=== PATIENT | female | born 1960 | race Caucasian/White ===

== ENCOUNTER 2018-03-15 20:54 | Emergency (ER) | payer OTHER ==
[2018-03-15 21:06] LABS: PH,URINE 6.5 (4.5-8); URINE APPEARANCE Clear; URINE BILIRUBIN Negative (NEGATIVE); URINE COLOR Yellow; URINE GLUCOSE (UA) Negative (NEGATIVE); URINE KETONE Negative (NEGATIVE); URINE LEUK ESTERASE Negative (NEGATIVE); URINE NITRITE Negative (NEGATIVE); URINE PROTEIN Negative (NEGATIVE); URINE UROBILINOGEN 0.2 (0.2-1.0)
[2018-03-15 22:08] VITALS: BP 135/95; PULSE 96; TEMP 98.6; BMI 29.1
[2018-03-15] MEDS ORDERED: SODIUM CHLORIDE 0.9% 1000 ML INFUS.BAG IV ONE (22:17)
--- NOTE | 2018-03-15 22:35 | PDOC ---
History of Present Illness - General Chief Complaint: Urinary Problem Stated Complaint: UTI Time Seen by Provider: 03/15/18 21:51 History Source: Patient Exam Limitations: No Limitations - History of Present Illness Initial Comments: 03/15/18 22:34 57 yo f with no pmhx here with c/o 5 days of lower abd pain. denies vomiting, but has had mild nausea, took home urine test said mild positive for nitrites. pt describes a sharp pain pulling sensation in pelvis. worse with walking and movement around. no f mild chills. no change to stool. take stool softners regularily bc h/o diverticulosis. also had had recent back pain. 03/16/18 00:48 Past History - Past Medical History Allergies/Adverse Reactions: Allergies Allergy/AdvReac Type Severity Reaction Status Date / Time latex Allergy Unknown Verified 03/15/18 20:57 Home Medications: Ambulatory Orders Levothyroxine [Synthroid -] 100 mcg PO DAILY 03/15/18 Raloxifene HCl [Evista] 60 mg PO DAILY 03/15/18 Ciprofloxacin HCl [Cipro] 500 mg PO BID #20 tablet 03/16/18 metroNIDAZOLE [Flagyl -] 500 mg PO TID #30 tablet 03/16/18 Cancer: Yes (BREAST) COPD: No Kidney Stones: Yes Thyroid Disease: Yes - Suicide/Smoking/Psychosocial Hx Smoking History: Never smoked Hx Alcohol Use: Yes (WINE 1-2 DAYS A WEEK) Drug/Substance Use Hx: No Substance Use Type: None Review of Systems - Review of Systems Constitutional: No: Chills, Diaphoresis Cardiac (ROS): No: Chest Pain ABD/GI: Yes: Other (abd pain). No: Abdominal Distended : No: Burning, Dysuria, Discharge All Other Systems: Reviewed and Negative *Physical Exam - Vital Signs Last Vital Signs Temp Pulse Resp BP Pulse Ox 98.6 F 96 H 16 135/95 98 03/15/18 20:55 03/15/18 20:55 03/15/18 20:55 03/15/18 20:55 03/15/18 20:55 - Physical Exam Comments: 03/16/18 00:50 awake alert lungs clear bilaterally heart rrr no mrg abd soft mild llq ttp, suprapubic ttp. no cva tenderness. ext wwp. no edema. skin warm and dry. General Appearance: No: Appropriately Dressed ED Treatment Course - LABORATORY CBC & Chemistry Diagram: 03/15/18 22:39 03/15/18 22:40 - ADDITIONAL ORDERS Additional order review: Laboratory Results 03/15/18 21:00 Urine Color Yellow Urine Appearance Clear Urine pH 6.5 Ur Specific [place] 1.020 Urine Protein Negative Urine Glucose (UA) Negative Urine Ketones Negative Urine Blood Negative Urine Nitrite Negative Urine Bilirubin Negative Urine Urobilinogen 0.2 Ur Leukocyte Esterase Negative - RADIOLOGY Radiology Studies Ordered: Category Date Time Status ABDOMEN & PELVIS CT WITH CONTR [CT] Stat CT Scan 03/15/18 22:15 Ordered Medical Decision Making - Medical Decision Making 03/16/18 00:50 differential diagnosis diverticulitis, pyelo uti, ovarian path. plan ct a/p ua labs. ct with diverticulitis, pt mild sxs, afebrile, tolerating po. will dc with cipro and flagyl, fu gi and pcp. *DC/Admit/Observation/Transfer Diagnosis at time of Disposition: Diverticulitis - Discharge Dispostion Disposition: HOME Condition at time of disposition: Improved Decision to Admit order: No - Prescriptions Prescriptions: Ciprofloxacin HCl [Cipro] 500 mg PO BID #20 tablet metroNIDAZOLE [Flagyl -] 500 mg PO TID #30 tablet - Referrals Referrals: Geetha Us MD [Primary Care Provider] - - Patient Instructions Printed Discharge Instructions: Diverticulitis Additional Instructions: take ciprofloxacin 500 mg twice daily x 10 days , take flagyl 500 mg three times daily x 10 days. do not take any alcohol while taking flagyl and it can cause severe nausea and vomiting. return for worsening pain, high fevers, vomiting or any concerns. you should take liquid diet for 2 - 3 days until pain improves, then advance to solids as tolerated. you should follow up with your primary doctor and a caption writer call to schedule. - Post Discharge Activity
[2018-03-15 23:01] LABS: EOS % 2.2 % (0-4.5); HEMATOCRIT 42.3 % (32.4-45.2); HEMOGLOBIN 14.2 GM/dl (10.7-15.3); LYMPH % 36.4 % (8-40); MCH 30.3 pg (25.7-33.7); MCHC 33.6 g/dl (32.0-36.0); MEAN CELL VOLUME 90.1 fl (80-96); MEAN PLT VOLUME 10.1 fl (7.5-11.1); MONO % 7.1 % (3.8-10.2); NEUT % 52.3 % (42.8-82.8); PLATELET COUNT 227 K/MM3 (134-434); RDW 11.6 % (11.6-15.6); WHITE BLOOD COUNT 7.1 K/mm3 (4.0-10.8)
[2018-03-15 23:10] LABS: ALBUMIN 4.1 g/dl (3.5-5.0); ALK PHOS 81 U/L (32-92); ANION GAP 8 MMOL/L (8-16); BILIRUBIN,TOTAL 0.2 mg/dl (0.2-1.0); BLOOD UREA NITROGEN 19 mg/dl (7-18); CALCIUM 9.3 mg/dl (8.4-10.2); CHLORIDE 105 mmol/L (98-107); CO2 24 mmol/L (22-28); CREATININE 0.8 mg/dl (0.6-1.3); GLUCOSE,RANDOM 118 mg/dl (74-106); POTASSIUM 4.5 mmol/L (3.5-5.1); SGOT/AST 34 U/L (10-42); SGPT/ALT 46 U/L (10-40); SODIUM 137 mmol/L (136-145); TOT PROT 7.3 g/dl (6.4-8.3)
[2018-03-16] MEDS ORDERED: CIPROFLOXACIN 500 MG TABLET (RESTRICTED TO ID) PO ONE (00:37)
[2018-03-16] MEDS ORDERED: metroNIDAZOLE 250 MG TABLET PO ONE (00:37)
[2018-03-16] MEDS ORDERED: metroNIDAZOLE 250 MG TABLET ONE (00:59)
[2018-03-16] MEDS ORDERED: CIPROFLOXACIN 250 MG TABLET (RESTRICTED TO ID) PO ONE (00:59)
== END 2018-03-16 01:08 | disposition home or self-care (01) ==
LOC: FER 20:54
PROC: 3E0337Z Introduction of Electrolytic and Water Balance Substance into Peripheral Vein, Percutaneous Approach (ICD-10-PCS; principal; 2018-03-15)
DX: K57.92 Diverticulitis of intestine, part unspecified, without perforation or abscess without bleeding (principal); Z85.3 Personal history of malignant neoplasm of breast; E07.9 Disorder of thyroid, unspecified
CPT/HCPCS: 36415; 74177-TC; 80053; 81003; 83690; 85025; 87086; 99283-25; J7030

== ENCOUNTER 2018-08-23 14:54 | Emergency (ER) | payer OTHER ==
[2018-08-23 14:58] VITALS: BP 151/95; PULSE 82; TEMP 98.5; BMI 28.8
[2018-08-23] MEDS ORDERED: SULFAMETHOXAZOLE/TRIMETHOPRIM 800MG/160MG D.S. TABLET PO ONE (15:20)
[2018-08-23] MEDS ORDERED: CEPHALEXIN MONOHYDRATE 500 MG CAPSULE (UD) PO ONE (15:20)
[2018-08-23] MEDS ORDERED: CEPHALEXIN MONOHYDRATE 500 MG CAPSULE (UD) ONE (15:26)
[2018-08-23] MEDS ORDERED: SULFAMETHOXAZOLE/TRIMETHOPRIM 800MG/160MG D.S. TABLET ONE (15:26)
--- NOTE | 2018-08-23 15:26 | PDOC ---
History of Present Illness - History of Present Illness Initial Comments: 08/23/18 15:41 HPI 58 YOF presenting with a rash to the right side of her face for the past 4 days. Patient was seen at an urgent care yesterday morning and was prescribed doxycycline 100mg BID, triamcinolone steroid topical cream, and mupirocin ointment TID. She has used the doxycycline and creams once so far, but states she has been taking photos of the rash and has noticed the rash has been spreading from her nose to her cheek and forehead. Patient called her PCP this morning since she has not noticed any improvement and was told to come to the ER for further evaluation. Patient notes she has a history of impetigo, which improved last time after taking doxy. Patient reports eating chips before her rash appeared the next day during both instances. Patient denies using any new soaps or lotions on her face. Denies fever, chills, chest pain, SOB, palpitation, dizziness, weakness, V, D, abdominal pain, bladder and bowel problems, leg swelling, No sick contacts or travel. No new changes in medications. Allergies: latex Past Medical History: hypothyroidism on synthroid and breast CA in remission for 6 years Social history: Lives with family. No smoking. No alcohol. No illicit drugs. Surgical history: 2 c-sections, partial mastectomies PMD: Dr Us <Dea Crews - Last Filed: 08/23/18 15:41> - General History Source: Patient Exam Limitations: No Limitations <Faith Gr - Last Filed: 08/23/18 16:03> - General Chief Complaint: Rash Stated Complaint: REDNESS TO FACE, RASH Time Seen by Provider: 08/23/18 15:01 Past History <Dae Crews - Last Filed: 08/23/18 15:41> - Past Medical History Cancer: Yes (BREAST) COPD: No Kidney Stones: Yes Thyroid Disease: Yes - Suicide/Smoking/Psychosocial Hx Smoking History: Never smoked Have you smoked in the past 12 months: No Information on smoking cessation initiated: No Hx Alcohol Use: No Drug/Substance Use Hx: No Substance Use Type: None <Faith Gr - Last Filed: 08/23/18 16:03> - Past Medical History Allergies/Adverse Reactions: Allergies Allergy/AdvReac Type Severity Reaction Status Date / Time latex Allergy Unknown Verified 08/23/18 14:55 Home Medications: Ambulatory Orders Cephalexin Monohydrate [Keflex -] 500 mg PO Q8H #30 capsule 08/23/18 Doxycycline Hyclate 100 mg PO BID 08/23/18 Hydrocortisone 1% Cream [Hytone 1% Cream -] 1 applic TP DAILY 08/23/18 Levothyroxine [Synthroid -] 75 mcg PO DAILY 08/23/18 Mupirocin Ointment [Bactroban 2% Ointment -] 1 applic TP TID #1 applic 08/23/18 Mupirocin Ointment [Bactroban] 1 applic TP ASDIR 08/23/18 Raloxifene HCl [Evista (Nf) -] 60 mg PO DAILY 08/23/18 Sulfamethoxazole/Trimethoprim [Bactrim Ds -] 1 tab PO BID #20 tablet 08/23/18 Review of Systems - Review of Systems Able to Perform ROS?: Yes Comments:: 08/23/18 15:41 ROS Constitutional: no fevers or chills. HEENT: no headache or dizziness. No congestion. No visual/hearing disturbances. No eye redness/pain. No eye discharge. +facial rash CVS: no cp Resp: no sob. No cough. Gastrointestinal: no abdominal pain, vomiting. +nausea MUSCULOSKELETAL: No joint pain and swelling. No neck or back pain. SKIN: No discharge. No wounds. (+) Facial rash. Hematologic: no easy bruising/bleeding. NEUROLOGIC: No headache, dizziness, LOC or altered mental status. No weakness, numbness or tingling. Allergic/Immunologic: environmental allergies and latex allergy. All other systems reviewed and negative, or as documented in HPI. <Dea Crews - Last Filed: 08/23/18 15:41> *Physical Exam - Vital Signs Last Vital Signs Temp Pulse Resp BP Pulse Ox 98.5 F 82 18 151/95 98 08/23/18 14:54 08/23/18 14:54 08/23/18 14:54 08/23/18 14:54 08/23/18 14:54 - Physical Exam Comments: 08/23/18 15:42 PE: General: Well appearing, awake and alert, NAD. HEENT: NCAT, PERRL, EOMI, clear conjunctiva, anicteric, moist mucus membranes, clear oropharynx, no oral lesions.. +raised rash over right side of face. No blistering, no mucosal involvement. Neck: neck supple, FROM Resp: normal and even respirations, no respiratory distress CVS: 2+ peripheral pulses throughout, no peripheral edema Abdomen: soft, NTND Back: nontender, FROM, ROM MSK: no edema, MASSEY x4, ROM intact. No clubbing or cyanosis. normal bulk and tone. Neuro: alert, oriented appropriately; no focal neurologic deficits, CN II-XII grossly intact. Skin: warm and well perfused, cap refill <2 sec. (+) Raised, erythematous area over the right side of her face extending over the nasal bridge, right nare and nasolabial folds, inner, cheek, upper lip with crusting over the right nare. (+ ) Soft cyst on the tip of the nose. <Dea Crews - Last Filed: 08/23/18 15:41> - Vital Signs Last Vital Signs Temp Pulse Resp BP Pulse Ox 98.5 F 82 18 151/95 98 08/23/18 14:54 08/23/18 14:54 08/23/18 14:54 08/23/18 14:54 08/23/18 14:54 <Faith Gr - Last Filed: 08/23/18 16:03> Moderate Sedation - Procedure Monitoring Vital Signs: Procedure Monitoring Vital Signs Temperature 98.5 F 08/23/18 14:54 Pulse Rate 82 08/23/18 14:54 Respiratory Rate 18 08/23/18 14:54 Blood Pressure 151/95 08/23/18 14:54 O2 Sat by Pulse Oximetry (%) 98 08/23/18 14:54 <Dea Crews - Last Filed: 08/23/18 15:41> - Procedure Monitoring Vital Signs: Procedure Monitoring Vital Signs Temperature 98.5 F 08/23/18 14:54 Pulse Rate 82 08/23/18 14:54 Respiratory Rate 18 08/23/18 14:54 Blood Pressure 151/95 08/23/18 14:54 O2 Sat by Pulse Oximetry (%) 98 08/23/18 14:54 <Faith Gr - Last Filed: 08/23/18 16:03> ED Treatment Course - Medications Given in the ED: ED Medications Discontinued Medications Generic Name Dose Route Start Last Admin Trade Name Pat PRN Reason Stop Dose Admin Cephalexin HCl 500 mg 08/23/18 15:20 08/23/18 15:29 Keflex - PO 08/23/18 15:21 500 mg ONCE ONE Administration Trimethoprim/Sulfamethoxazole 1 each 08/23/18 15:20 08/23/18 15:29 Bactrim Ds - PO 08/23/18 15:21 1 each ONCE ONE Administration <Dea Crews - Last Filed: 08/23/18 15:41> Medical Decision Making - Medical Decision Making 08/23/18 15:29 hpi as documented VS wnl, no fever. nontoxic appearing. ddx. cellulitis (orbital vs preseptal), erysipelas, impetigo. does not appear as SJS/TEN, no blistering or oral involvement. does not appears as TSS. no ocular involvement, area of erythema is firm and raised, c/w more erysipelas no e/o orbital cellulitis or [employer] extension. was on doxy less than 24 hrs, not appropriate coverage and time frame. change to keflex/bactrim for strep and staph coverage, including mrsa no steroids, as this will diminish the skin barrier and prone to infection/ breakdown. can c/w mupirocin topically for the crusting/on right nare. instructed to take selfies for monitoring and demarcating lines of erythema. if worsening past margins, return sooner in addition to infection s/s. keep area clean and dry. optimal time frame with new abx 24-48 hrs with more appropriate abx and treatment. if failed, after time above, return for IV abx. Pt informed of my clinical impression, treatment recommendations and disposition plan. All questions answered to patient's satisfaction and expressed understanding and comfort with this. Reasons for returning to the ED sooner discussed with the patient otherwise, follow up with primary care physician. At the time of discharge, the patient is alert, clinically improved, tolerating po and verbalizes understanding of instructions. Patient does not suffer from an acute life-threatening medical condition at this time she is safe for outpatient follow-up. 08/23/18 15:33 <Faith Gr - Last Filed: 08/23/18 16:03> *DC/Admit/Observation/Transfer - Attestations Scribe Attestion: 08/23/18 15:42 Documentation prepared by Dea Crews, acting as medical safety director for Faith Gr MD. <Dea Crews - Last Filed: 08/23/18 15:41> - Discharge Dispostion Decision to Admit order: No - Attestations Physician Attestion: 08/23/18 15:33 I, Faith Gr MD, attest that this document has been prepared under my direction and personally reviewed by me in its entirety. I further attest, that it accurately reflects all work, treatment, procedures and medical decision -making performed by me. <Faith Gr - Last Filed: 08/23/18 16:03> Diagnosis at time of Disposition: Erysipelas, Impetigo - Discharge Dispostion Disposition: HOME Condition at time of disposition: Stable - Prescriptions Prescriptions: Cephalexin Monohydrate [Keflex -] 500 mg PO Q8H #30 capsule Mupirocin Ointment [Bactroban 2% Ointment -] 1 applic TP TID #1 applic Sulfamethoxazole/Trimethoprim [Bactrim Ds -] 1 tab PO BID #20 tablet - Referrals Referrals: Geetha Us MD [Staff Physician] - - Patient Instructions Printed Discharge Instructions: DI for Cellulitis -- Adult, DI for Erysipelas Additional Instructions: 1) Please follow-up with your primary care doctor in the next 1-2 days. Please call tomorrow for for any urgent issues. 2) You most likely have a skin infection called Erysipelas or Cellulitis. this will be treated with antibiotics x 10 days. 3) If you have any worsening of symptoms or any other concerns please return to the ED immediately. Return if worsening symptoms including fevers, headache, vomiting, visual or hearing disturbances, eye involvement/infection, abdominal pain, chest pain, shortness of breath, syncope, dehydration, inability to take things by mouth/vomiting, altered mental status, or worsening concerning symptoms. monitor for progressive redness beyond the borders currently. Give the antibiotics x 24-48 hours to work, you may get worse before you get better, if worsening redness/pain/swelling, you should return for IV antibiotics. 4) Please continue taking your home medications as directed. your medications on discharge include Keflex and Bactrim x 10 days. . side effects may include upset stomach, abdominal pain, vomiting, or diarrhea. do not drink alcohol with your medications. - Continue to take your mupirocin topically three times a day for the impetigo. - no steroid cream for the face, as this will weaken the barrier to the skin. - avoid sunlight or scratching or touching your face. Stay well hydrated and rest adequately. an appointment. If you cannot follow-up with your primary care doctor please return to the ED
== END 2018-08-23 16:05 | disposition home or self-care (01) ==
LOC: FER 14:54
DX: A46 Erysipelas (principal); L01.00 Impetigo, unspecified; Z85.3 Personal history of malignant neoplasm of breast; E07.9 Disorder of thyroid, unspecified; Z87.442 Personal history of urinary calculi; E03.9 Hypothyroidism, unspecified
CPT/HCPCS: 99283-25

== ENCOUNTER 2020-07-22 21:11 | Emergency (ER) | payer OTHER ==
[2020-07-22 21:27] VITALS: BP 138/82; PULSE 76; TEMP 98; BMI 29.0
[2020-07-22] MEDS ORDERED: SODIUM CHLORIDE 1,000 ML IV STA (21:50)
[2020-07-22] MEDS ORDERED: ACETAMINOPHEN 1000 MG/100 ML VIAL (NON FORMULARY) IVPB ONE (21:50)
[2020-07-22] MEDS ORDERED: ACETAMINOPHEN INJECTION 100 ML IVPB ONE (21:52)
[2020-07-22 21:59] LABS: BASO % 1.3 % (0-2.0); EOS % 1.8 % (0-4.5); HEMATOCRIT 42.5 % (32.4-45.2); HEMOGLOBIN 14.2 GM/dl (10.7-15.3); LYMPH % 32.7 % (8-40); MCH 30.2 pg (25.7-33.7); MCHC 33.4 g/dl (32.0-36.0); MEAN CELL VOLUME 90.6 fl (80-96); MEAN PLT VOLUME 9.7 fl (7.5-11.1); MONO % 4.8 % (3.8-10.2); NEUT % 59.4 % (42.8-82.8); PLATELET COUNT 215 K/MM3 (134-434); RBC 4.69 M/mm3 (3.60-5.2); RDW 11.7 % (11.6-15.6); WHITE BLOOD COUNT 8.8 K/mm3 (4.0-10.8)
[2020-07-22 22:15] LABS: ALBUMIN 4.3 g/dl (3.4-5.0); BILIRUBIN,TOTAL 0.5 mg/dl (0.2-1); CALCIUM 9.6 mg/dl (8.5-10); CREATININE 0.8 mg/dl (0.55-1.3); TOT PROT 7.3 g/dl (6.4-8.2)
[2020-07-23] MEDS ORDERED: KETOROLAC TROMETHAMINE 30 MG/1 ML VIAL ONE (02:52)
[2020-07-23] MEDS ORDERED: KETOROLAC TROMETHAMINE 30 MG/1 ML VIAL IVPUSH ONE (02:52)
== END 2020-07-23 03:02 | disposition home or self-care (01) ==
LOC: FER 21:11
PROC: 3E0333Z Introduction of Anti-inflammatory into Peripheral Vein, Percutaneous Approach (ICD-10-PCS; principal; 2020-07-22)
PROC: 3E0333Z Introduction of Anti-inflammatory into Peripheral Vein, Percutaneous Approach (ICD-10-PCS; 2020-07-22)
PROC: 3E0337Z Introduction of Electrolytic and Water Balance Substance into Peripheral Vein, Percutaneous Approach (ICD-10-PCS; 2020-07-22)
DX: K38.8 Other specified diseases of appendix (principal)
CPT/HCPCS: 36415; 74177-TC; 80053; 85025; 99285-25; J0131; Q9967

== ENCOUNTER 2022-08-24 17:03 | Emergency (ER) | payer OTHER ==
[2022-08-24 17:58] VITALS: BP 140/104; PULSE 80; RESP 16; TEMP 98.7; BMI 29.9
[2022-08-24] MEDS ORDERED: SULFAMETHOXAZOLE/TRIMETHOPRIM 800MG/160MG D.S. TABLET PO ONE (18:16)
[2022-08-24] MEDS ORDERED: CEPHALEXIN MONOHYDRATE 500 MG CAPSULE (UD) PO ONE (18:16)
[2022-08-24] MEDS ORDERED: SULFAMETHOXAZOLE/TRIMETHOPRIM 800MG/160MG D.S. TABLET ONE (18:27)
[2022-08-24] MEDS ORDERED: CEPHALEXIN MONOHYDRATE 500 MG CAPSULE (UD) ONE (18:27)
== END 2022-08-24 18:33 | disposition home or self-care (01) ==
LOC: FER 17:03
DX: L03.211 Cellulitis of face (principal); L02.01 Cutaneous abscess of face
CPT/HCPCS: 99283-25

== ENCOUNTER 2022-10-16 23:26 | Emergency (ER) | payer OTHER ==
[2022-10-17] MEDS ORDERED: predniSONE 20 MG TABLET (UD) PO ONE (00:05)
[2022-10-17] MEDS ORDERED: predniSONE 20 MG TABLET (UD) ONE (00:11)
[2022-10-17] MEDS ORDERED: LORATADINE 10 MG TABLET ONE (00:11)
[2022-10-17 00:16] VITALS: BP 135/92; PULSE 84; RESP 18; TEMP 98; BMI 25.8
[2022-10-17] MEDS ORDERED: LORATADINE 10 MG TABLET PO ONE (00:17)
== END 2022-10-17 00:29 | disposition home or self-care (01) ==
LOC: FER 23:26
DX: L29.9 Pruritus, unspecified (principal)
CPT/HCPCS: 99283-25